=== PATIENT | male | born 1945 | race Caucasian/White ===

== ENCOUNTER 2018-10-07 07:39 | Observation (INO) | payer MEDICARE, MEDICAID ==
[2018-10-07] MEDS: Sodium Chloride 0.9% 1,000 ML IV SCH ×4 (08:40→22:12)
[2018-10-07] MEDS ORDERED: Sodium Chloride 0.9% 1,000 ML ONE (08:43)
--- NOTE | 2018-10-07 08:54 | CT ---
Date of service: 10/07/2018 PROCEDURE: CT HEAD WITHOUT CONTRAST HISTORY: Code Stroke COMPARISON: CT head 08/29/2013 TECHNIQUE: Axial computed tomography images were obtained through the head/brain without intravenous contrast. Coronal and sagittal reconstructions are also aquired. Radiation dose: Total exam DLP = 1086.36 mGy-cm. FINDINGS: HEMORRHAGE: No intracranial hemorrhage seen. BRAIN: No intraparenchymal mass identified. There is ventricular and sulcal prominence, consistent with age related volume loss. There are areas of periventricular white matter hypodensity, consistent with chronic small vessel ischemic changes. Bilateral basal ganglia calcifications noted. Acro cranial VENTRICLES: See above CALVARIUM: Intact PARANASAL SINUSES: Visualized paranasal sinuses are clear. MASTOID AIR CELLS: Minimal fluid noted in the visualized left mastoid air cells. Visualized right mastoid air cells are clear. OTHER FINDINGS: None. IMPRESSION: No mass, hemorrhage, or acute infarct identified. Age-related changes as above. Findings discussed with Dr. Mitchell of the emergency department at 8:48 am on 10/07/2018.
--- NOTE | 2018-10-07 08:55 | C.PDOC ---
History Of Present Illness 73 year old male with no pertinent medical problems presents to the ED complaining of headache, nausea, vomiting, and dizziness for one day. Reports he was feeling fine yesterday and working in the yard until 15:00 when he started feeling dizzy. Reports he went to rest and then to sleep and he still felt dizzy when he woke up this morning. Reports headache is dull, frontal, and rates it 5/10. He feels like the world is spinning and is associated with 2 episodes of vomiting. Time Seen by Provider: 10/07/18 07:58 Chief Complaint (Nursing): Dizziness/Lightheaded History Per: Patient History/Exam Limitations: no limitations Onset/Duration Of Symptoms: Days Current Symptoms Are (Timing): Still Present Fall Associated With With Symptoms: No Past Medical History Reviewed: Historical Data, Nursing Documentation, Vital Signs Vital Signs: Last Vital Signs Temp 97.5 F L 10/07/18 07:45 Pulse 44 L 10/07/18 08:51 Resp 12 10/07/18 08:51 BP 135/67 10/07/18 08:51 Pulse Ox 100 10/07/18 08:51 Primary Care Provider: Natalia Navarro - Medical History PMH: Hypercholesterolemia Surgical History: No Surg Hx Family History: States: No Known Family Hx - Social History Hx Tobacco Use: No Hx Alcohol Use: No Hx Substance Use: No - Immunization History Hx Tetanus Toxoid Vaccination: No Hx Influenza Vaccination: Yes Hx Pneumococcal Vaccination: No Review Of Systems Except As Marked, All Systems Reviewed And Found Negative. Constitutional: Negative for: Fever, Chills Cardiovascular: Negative for: Chest Pain Respiratory: Negative for: Shortness of Breath Gastrointestinal: Positive for: Nausea, Vomiting Neurological: Positive for: Headache, Dizziness Physical Exam - Physical Exam Appears: Non-toxic, No Acute Distress, Other (calm, cooperative, answering questions, cachectic, frail, elderly ) Skin: Warm, Dry, No Rash Head: Normacephalic Eye(s): bilateral: Normal Inspection Oral Mucosa: Moist Neck: Supple Chest: Symmetrical Cardiovascular: Rhythm Regular, Other (Bradycardic ) Respiratory: Normal Breath Sounds, No Rales, No Rhonchi, No Wheezing Gastrointestinal/Abdominal: Soft, No Tenderness, Other (scaphoid) Pulses: Left Dorsalis Pedis: Normal, Right Dorsalis Pedis: Normal Neurological/Psych: Oriented x3, Normal Speech Gait: Steady ED Course And Treatment - Laboratory Results Result Diagrams: 10/07/18 09:01 10/07/18 09:01 O2 Sat by Pulse Oximetry: 100 (RA) Pulse Ox Interpretation: Normal - CT Scan/US CT Head Other Rad Studies (CT/US): Read By Radiologist, Radiology Report Reviewed CT/US Interpretation: Accession No. : [id number]. Patient Name / ID : JOEY CHOUDHURY R / [id number]. Exam Date : 10/07/2018 08:25:49 ( Approved ). Study Comment : Sex / Age : M / 73Y. Creator : Abran Navarro MD. Dictator : Abran Navarro MD. Chemical Processing Supervisor : Senior Court Office Assistant : Abran Navarro MD. Approver2 : Report Date : 10/07/2018 08:50:22. My Comment : . Date of service: 10/07/2018. PROCEDURE: CT HEAD WITHOUT CONTRAST. HISTORY: Code Stroke. COMPARISON: CT head 08/29/2013. TECHNIQUE: Axial computed tomography images were obtained through the head/brain without intravenous contrast. Coronal and sagittal reconstructions are also aquired. Radiation dose: Total exam DLP = 1086.36 mGy-cm. FINDINGS: HEMORRHAGE: No intracranial hemorrhage seen. BRAIN: No intraparenchymal mass identified. There is ventricular and sulcal prominence, consistent with age related volume loss. There are areas of periventricular white matter hypodensity, consistent with chronic small vessel ischemic changes. Bilateral basal ganglia calcificat ions noted. Acro cranial. VENTRICLES: See above. CALVARIUM: Intact. PARANASAL SINUSES: Visualized paranasal sinuses are clear. MASTOID AIR CELLS: Minimal fluid noted in the visualized left mastoid air cells. Visualized right mastoid air cells are clear. OTHER FINDINGS: None. IMPRESSION: No mass, hemorrhage, or acute infarct identified. Age-related changes as above. Findings discussed with Dr. Mitchell of the emergency department at 8:48 am on 10/07/2018. Medical Decision Making Medical Decision Making: Differentials: Stroke vs Vertigo Plan - EKG - CXR - IV fluids - CT head - Bloodwork - Code Stroke CT head is unremarkable. On reevaluation, patient reports he still has headache but dizziness is subsiding. Disposition Discussed With Dr.: Natalia Navarro - Disposition Disposition: HOSPITALIZED Disposition Time: 10:21 Condition: GUARDED - POA Present On Arrival: None - Clinical Impression Clinical Impression: Dizziness, Near syncope, Vomiting, Headache - Scribe Statement The provider has reviewed the documentation as recorded by the Scribe Irena Hernandez All medical record entries made by the Scribe were at my direction and personally dictated by me. I have reviewed the chart and agree that the record accurately reflects my personal performance of the history, physical exam, medical decision making, and the department course for this patient. I have also personally directed, reviewed, and agree with the discharge instructions and disposition. Decision To Admit - Pt Status Changed To: Hospital Disposition Of: Observation - . Bed Request Type: Telemetry Admitting Physician: Natalia Navarro Patient Diagnosis: Vomiting, Headache, Near syncope
[2018-10-07 09:11] LABS: BASO % 0.4 % (0.0-2.0); EOS # 0.8 K/uL (0.0-0.7); EOS % 10.7 % (0.0-4.0); LYMPH # 2.8 K/uL (1.0-4.3); LYMPH % 36.9 % (20.0-40.0); MEAN CELL VOLUME 82.4 fL (80.0-94.0); MEAN CORPUSCULAR HEMOGLOBIN 27.6 pg (27.0-31.0); MEAN CORPUSCULAR HGB CONC 33.5 g/dL (33.0-37.0); MONO # 0.5 K/uL (0.0-0.8); MONO % 6.7 % (0.0-10.0); NEUT # 3.4 K/uL (1.8-7.0); NEUT % 45.3 % (50.0-75.0); NRBC % 0.1 % (0.0-2.0); RBC 4.71 Mil/uL (4.40-5.90); RED CELL DISTRIBUTION WIDTH 13.8 % (11.5-14.5); WHITE BLOOD COUNT 7.5 K/uL (4.8-10.8)
[2018-10-07 09:18] LABS: PARTIAL THROMBOPLASTIN TIME 29.2 SECONDS (21-34); PROTHROMBIN TIME 10.8 SECONDS (9.7-12.2)
[2018-10-07 09:27] LABS: ALB/GLOB RATIO 1.3 (1.0-2.1); ALBUMIN 4.2 g/dL (3.5-5.0); ALT/SGPT 35 U/L (21-72); AST/SGOT 31 U/L (17-59); BLOOD UREA NITROGEN 13 mg/dL (9-20); CALCIUM 9.2 mg/dl (8.6-10.4); GFR NON-AFRICAN AMERICAN > 60; HDL CHOLESTEROL 58 mg/dL (30-70)
[2018-10-07 09:38] LABS: LDL CHOLESTEROL 133 mg/dL (0-129)
--- NOTE | 2018-10-07 11:09 | RAD ---
Date of service: 10/07/2018 HISTORY: Code Stroke COMPARISON: Comparison made with prior chest radiograph dated 08/28/2013 TECHNIQUE: 1 view obtained. FINDINGS: LUNGS: No acute consolidation. There are 1 or 2 tiny nodular densities seen in the right upper lobe and punctate nodular density left upper lobe. Findings may represent small granulomata. PLEURA: No significant pleural effusion identified, no pneumothorax apparent. CARDIOVASCULAR: Aortic atherosclerotic calcification present. Normal cardiac size. No pulmonary vascular congestion. OSSEOUS STRUCTURES: No significant abnormalities. VISUALIZED UPPER ABDOMEN: Normal. OTHER FINDINGS: None. IMPRESSION: No acute consolidation. There are 1 or 2 tiny nodular densities seen in the right upper lobe and punctate nodular density left upper lobe. Findings may represent small granulomata.
--- NOTE | 2018-10-07 15:33 | CP.PCM.HP ---
Past Patient History - Infectious Disease Hx of Infectious Diseases: None - Past Social History Smoking Status: Light Smoker < 10 Cigarettes Daily - CARDIAC Hx Hypercholesterolemia: Yes - NEUROLOGICAL Hx Neurological Disorder: Yes - MUSCULOSKELETAL/RHEUMATOLOGICAL Hx Falls: Yes - PSYCHIATRIC Hx Substance Use: No - ANESTHESIA Hx Anesthesia: No Hx Anesthesia Reactions: No Hx Malignant Hyperthermia: No Meds Allergies/Adverse Reactions: Allergies Allergy/AdvReac Type Severity Reaction Status Date / Time No Known Allergies Allergy Verified 10/07/18 07:48 Physical Exam - Constitutional Appears: Well - Head Exam Head Exam: ATRAUMATIC, NORMAL INSPECTION, NORMOCEPHALIC - Eye Exam Eye Exam: EOMI, Normal appearance, PERRL Pupil Exam: NORMAL ACCOMODATION, PERRL - ENT Exam ENT Exam: Mucous Membranes Moist, Normal Exam - Neck Exam Neck exam: Positive for: Normal Inspection - Respiratory Exam Respiratory Exam: Decreased Breath Sounds - Cardiovascular Exam Cardiovascular Exam: REGULAR RHYTHM, +S1, +S2 - GI/Abdominal Exam GI & Abdominal Exam: Diminished Bowel Sounds, Soft - Rectal Exam Rectal Exam: Deferred - Neurological Exam Neurological exam: Oriented x3 Results - Vital Signs Recent Vital Signs: Last Vital Signs Temp 97.4 F L 10/07/18 11:42 Pulse 48 L 10/07/18 12:24 Resp 20 10/07/18 11:42 BP 146/63 10/07/18 11:42 Pulse Ox 98 10/07/18 11:42 - Labs Result Diagrams: 10/07/18 09:01 10/07/18 09:01 Labs: Laboratory Results - last 24 hr 10/07/18 10/07/18 10/07/18 08:13 09:01 09:01 WBC 7.5 RBC 4.71 Hgb 13.0 Hct 38.8 MCV 82.4 MCH 27.6 MCHC 33.5 RDW 13.8 Plt Count 170 MPV 10.0 Neut % (Auto) 45.3 L Lymph % (Auto) 36.9 [place] % (Auto) 6.7 Eos % (Auto) 10.7 H Baso % (Auto) 0.4 Neut # (Auto) 3.4 Lymph # (Auto) 2.8 [place] # (Auto) 0.5 Eos # (Auto) 0.8 H Baso # (Auto) 0.0 PT 10.8 INR 1.0 APTT 29.2 Sodium Potassium Chloride Carbon Dioxide Anion Gap BUN Creatinine Est GFR ( Amer) Est GFR (Non-Af Amer) POC Glucose (mg/dL) 131 H Random Glucose Hemoglobin A1c Calcium Total Bilirubin AST ALT Alkaline Phosphatase Troponin I Total Protein Albumin Globulin Albumin/Globulin Ratio Triglycerides Cholesterol LDL Cholesterol Direct HDL Cholesterol Blood Type Antibody Screen 10/07/18 10/07/18 10/07/18 09:01 09:01 09:01 WBC RBC Hgb Hct MCV MCH MCHC RDW Plt Count MPV Neut % (Auto) Lymph % (Auto) [place] % (Auto) Eos % (Auto) Baso % (Auto) Neut # (Auto) Lymph # (Auto) [place] # (Auto) Eos # (Auto) Baso # (Auto) PT INR APTT Sodium 138 Potassium 4.1 Chloride 104 Carbon Dioxide 25 Anion Gap 13 BUN 13 Creatinine 0.9 Est GFR ( Amer) > 60 Est GFR (Non-Af Amer) > 60 POC Glucose (mg/dL) Random Glucose 122 H D Hemoglobin A1c 6.1 Calcium 9.2 Total Bilirubin 0.6 AST 31 ALT 35 Alkaline Phosphatase 114 Troponin I < 0.0120 Total Protein 7.5 Albumin 4.2 Globulin 3.3 Albumin/Globulin Ratio 1.3 Triglycerides 88 Cholesterol 220 H LDL Cholesterol Direct 133 H HDL Cholesterol 58 Blood Type A NEGATIVE Antibody Screen Negative
[2018-10-08 01:15] VITALS: RESP 18
[2018-10-08] MEDS: Sodium Chloride 0.9% 1,000 ML IV SCH ×3 (04:48→14:30)
[2018-10-08 08:23] VITALS: TEMP 97.5; O2SAT 99
[2018-10-08 09:57] LABS: URINE BACTERIA RARE (<OCC); URINE BILIRUBIN NEGATIVE (NEGATIVE); URINE BLOOD NEGATIVE (NEGATIVE); URINE CLARITY Clear (Clear); URINE COLOR Straw (YELLOW); URINE GLUCOSE (UA) NORMAL (Normal); URINE LEUKOCYTE ESTERASE NEG Leu/uL (Negative); URINE PROTEIN NEGATIVE (NEGATIVE); URINE UROBILINOGEN NORMAL mg/dL (0.2-1.0)
[2018-10-08] MEDS ORDERED: Enoxaparin 40 mg Syringe SC SCH (10:00)
[2018-10-08 11:14] LABS: BASO % 0.4 % (0.0-2.0); EOS # 1.2 K/uL (0.0-0.7); EOS % 16.8 % (0.0-4.0); HEMOGLOBIN 12.7 g/dL (12.0-18.0); LYMPH # 2.4 K/uL (1.0-4.3); LYMPH % 33.1 % (20.0-40.0); MEAN CORPUSCULAR HEMOGLOBIN 27.6 pg (27.0-31.0); MEAN CORPUSCULAR HGB CONC 32.7 g/dL (33.0-37.0); MEAN PLATELET VOLUME 9.8 fL (7.2-11.7); MONO # 0.5 K/uL (0.0-0.8); MONO % 6.8 % (0.0-10.0); NEUT # 3.2 K/uL (1.8-7.0); NEUT % 42.9 % (50.0-75.0); NRBC % 0.1 % (0.0-2.0); RBC 4.59 Mil/uL (4.40-5.90); RED CELL DISTRIBUTION WIDTH 13.8 % (11.5-14.5); WHITE BLOOD COUNT 7.4 K/uL (4.8-10.8)
[2018-10-08 11:17] LABS: MEAN CELL VOLUME 84.4 fL (80.0-94.0)
[2018-10-08 11:28] LABS: ALB/GLOB RATIO 1.3 (1.0-2.1); ALBUMIN 3.6 g/dL (3.5-5.0); ALT/SGPT 30 U/L (21-72); AST/SGOT 26 U/L (17-59); BLOOD UREA NITROGEN 10 mg/dL (9-20); CALCIUM 8.9 mg/dl (8.6-10.4); GFR NON-AFRICAN AMERICAN > 60
[2018-10-08 12:34] VITALS: BP 149/60; PULSE 60
--- NOTE | 2018-10-08 14:50 | CP.PCM.PN ---
Subjective - Date & Time of Evaluation Date of Evaluation: 10/08/18 Time of Evaluation: 14:50 - Subjective Subjective: PATIENT SEEN AND EXAMINED AT THE BEDSIDE Objective - Vital Signs/Intake and Output Vital Signs (last 24 hours): Temp Pulse Resp BP Pulse Ox 97.5 F L 60 18 149/60 99 10/08/18 08:21 10/08/18 12:17 10/08/18 08:21 10/08/18 12:17 10/08/18 12:17 Intake and Output: 10/08/18 10/08/18 06:59 18:59 Output Total 1150 Balance -1150 - Medications Medications: Current Medications Aspirin (Aspirin Chewable) 81 mg PO DAILY [facility] Last Admin: 10/08/18 09:22 Dose: 81 mg Enoxaparin Sodium (Lovenox) 40 mg SC DAILY [facility] Last Admin: 10/08/18 09:22 Dose: 40 mg Sodium Chloride (Sodium Chloride 0.9%) 1,000 mls @ 100 mls/hr IV .Q10H GEOFF Last Admin: 10/08/18 06:46 Dose: 100 mls/hr Meclizine HCl (Antivert) 25 mg PO TID PRN PRN Reason: Dizziness Rosuvastatin Calcium (Crestor) 10 mg PO HS [facility] Last Admin: 10/07/18 22:11 Dose: 10 mg - Labs Labs: 10/08/18 11:03 10/08/18 11:03 PT 10.8 SECONDS (9.7-12.2) 10/07/18 09:01 INR 1.0 10/07/18 09:01 APTT 29.2 SECONDS (21-34) 10/07/18 09:01 Assessment and Plan - Assessment and Plan (Free Text) Assessment: FOLLOW UP WITH DR Julia COOK IN HIS OFFICE CONTINUE HOME MEDICATION NEW PRESCRIPTION GIVEN MECLIZINE 25 MG PO PRN Q8H FOR 15 DAYS ACTIVITY TOLERATED CALL DR Julia COOK OR GO TO THE EMERGENCY ROOM IF SYMPTOM RETURN OR WORSENING
--- NOTE | 2018-10-08 19:31 | CARD ---
APPROVED REPORT Date of service: 10/07/2018 EKG Measurement Heart [id number] [id number] <Conclusion> Sinus bradycardia Otherwise normal ECG
--- NOTE | 2018-10-08 20:00 | CARD ---
APPROVED REPORT Date of service: 10/08/2018 EXAM: Two-dimensional and M-mode echocardiogram with Doppler and color Doppler. INDICATION Dizziness and Vertigo BRADYCARDIA, VTACH RISK FACTORS Smoking 2D DIMENSIONS IVSd0.7 (0.7-1.1cm)LVDd4.4 (3.9-5.9cm) PWd0.7 (0.7-1.1cm)LA Gfaqbd46 (18-58mL) LVDs2.7 (2.5-4.0cm)FS (%) 37.6 % LVEF (%)67.8 (>50%)LVEF (Trevino's)66.58 % M-Mode DIMENSIONS Left Atrium (MM)3.02 (2.5-4.0cm)IVSd0.78 (0.7-1.1cm) Aortic Root3.82 (2.2-3.7cm)LVDd4.46 (4.0-5.6cm) Aortic Cusp Exc.2.34 (1.5-2.0cm)PWd0.70 (0.7-1.1cm) FS (%) 31 %LVDs3.06 (2.0-3.8cm) LVEF (%)59 (>50%) Mitral Valve MV E Uactmbmv35.4cm/sMV A Svncymzv72.2cm/sE/A ratio1.3 TDI Lateral E' Peak V12.54cm/sMedial E' Peak V9.90cm/sE/Lateral E'6.4 E/Medial E'8.1 Tricuspid Valve TR Peak Fofhwruy302xl/sTR Peak Gr.51mgVrIVUO70mjYl <Conclusion> normal size la,lv & ra rv. normal lv wall otion,thickness,systolic & diastolic function with lvef of 65-70% .normal aortic,mitral,tv & pv. mild tr,trace pi & mr. normal size aortic root & ivc. no pericardial effusion. nomral pulmonary systolic pressures of 30 mm of hg.
--- NOTE | 2018-10-09 01:30 | CP.PCM.DIS ---
Provider - Provider Date of Admission: 10/07/18 08:55 Attending physician: Michelle Cook MD Consults: 10/07/18 16:08 Cardiology Consult Routine Comment: SINUS YARI AND DIZZINESS Consulting Provider: Ankush Scott Consulting Physician: Ankush Scott Reason for Consult: SINUS YARI AND DIZZINESS Time Spent in preparation of Discharge (in minutes): 30 Hospital Course - Lab Results Lab Results: Most Recent Lab Values WBC 7.4 K/uL (4.8-10.8) 10/08/18 11:03 RBC 4.59 Mil/uL (4.40-5.90) 10/08/18 11:03 Hgb 12.7 g/dL (12.0-18.0) 10/08/18 11:03 Hct 38.7 % (35.0-51.0) 10/08/18 11:03 MCV 84.4 fL (80.0-94.0) D 10/08/18 11:03 MCH 27.6 pg (27.0-31.0) 10/08/18 11:03 MCHC 32.7 g/dL (33.0-37.0) L 10/08/18 11:03 RDW 13.8 % (11.5-14.5) 10/08/18 11:03 Plt Count 166 K/uL (130-400) 10/08/18 11:03 MPV 9.8 fL (7.2-11.7) 10/08/18 11:03 Neut % (Auto) 42.9 % (50.0-75.0) L 10/08/18 11:03 Lymph % (Auto) 33.1 % (20.0-40.0) 10/08/18 11:03 [place] % (Auto) 6.8 % (0.0-10.0) 10/08/18 11:03 Eos % (Auto) 16.8 % (0.0-4.0) H 10/08/18 11:03 Baso % (Auto) 0.4 % (0.0-2.0) 10/08/18 11:03 Neut # (Auto) 3.2 K/uL (1.8-7.0) 10/08/18 11:03 Lymph # (Auto) 2.4 K/uL (1.0-4.3) 10/08/18 11:03 [place] # (Auto) 0.5 K/uL (0.0-0.8) 10/08/18 11:03 Eos # (Auto) 1.2 K/uL (0.0-0.7) H 10/08/18 11:03 Baso # (Auto) 0.0 K/uL (0.0-0.2) 10/08/18 11:03 PT 10.8 SECONDS (9.7-12.2) 10/07/18 09:01 INR 1.0 10/07/18 09:01 APTT 29.2 SECONDS (21-34) 10/07/18 09:01 Sodium 138 mmol/L (132-148) 10/08/18 11:03 Potassium 4.0 mmol/L (3.6-5.2) 10/08/18 11:03 Chloride 108 mmol/L (98-107) H 10/08/18 11:03 Carbon Dioxide 25 mmol/L (22-30) 10/08/18 11:03 Anion Gap 9 (10-20) L 10/08/18 11:03 BUN 10 mg/dL (9-20) 10/08/18 11:03 Creatinine 0.9 mg/dL (0.8-1.5) 10/08/18 11:03 Est GFR ( Amer) > 60 10/08/18 11:03 Est GFR (Non-Af Amer) > 60 10/08/18 11:03 POC Glucose (mg/dL) 102 mg/dL (65-110) 10/08/18 12:10 Random Glucose 85 mg/dL (75-110) D 10/08/18 11:03 Hemoglobin A1c 6.1 % (4.2-6.5) 10/07/18 09:01 Calcium 8.9 mg/dl (8.6-10.4) 10/08/18 11:03 Magnesium 2.1 mg/dL (1.6-2.3) 10/07/18 19:09 Total Bilirubin 0.4 mg/dL (0.2-1.3) 10/08/18 11:03 AST 26 U/L (17-59) 10/08/18 11:03 ALT 30 U/L (21-72) 10/08/18 11:03 Alkaline Phosphatase 88 U/L (38-126) 10/08/18 11:03 Troponin I < 0.0120 ng/mL (0.00-0.120) 10/07/18 09:01 Total Protein 6.4 g/dL (6.3-8.3) 10/08/18 11:03 Albumin 3.6 g/dL (3.5-5.0) 10/08/18 11:03 Globulin 2.7 gm/dL (2.2-3.9) 10/08/18 11:03 Albumin/Globulin Ratio 1.3 (1.0-2.1) 10/08/18 11:03 Triglycerides 88 mg/dL (0-149) 10/07/18 09:01 Cholesterol 220 mg/dL (0-199) H 10/07/18 09:01 LDL Cholesterol Direct 133 mg/dL (0-129) H 10/07/18 09:01 HDL Cholesterol 58 mg/dL (30-70) 10/07/18 09:01 Urine Color Straw (YELLOW) 10/08/18 09:45 Urine Clarity Clear (Clear) 10/08/18 09:45 Urine pH 5.0 (5.0-8.0) 10/08/18 09:45 Ur Specific [place] 1.006 (1.003-1.030) 10/08/18 09:45 Urine Protein Negative mg/dL (NEGATIVE) 10/08/18 09:45 Urine Glucose (UA) Normal mg/dL (Normal) 10/08/18 09:45 Urine Ketones Negative mg/dL (NEGATIVE) 10/08/18 09:45 Urine Blood Negative (NEGATIVE) 10/08/18 09:45 Urine Nitrate Negative (NEGATIVE) 10/08/18 09:45 Urine Bilirubin Negative (NEGATIVE) 10/08/18 09:45 Urine Urobilinogen Normal mg/dL (0.2-1.0) 10/08/18 09:45 Ur Leukocyte Esterase Neg [place]/uL (Negative) 10/08/18 09:45 Urine WBC (Auto) < 1 /hpf (0-5) 10/08/18 09:45 Urine RBC (Auto) < 1 /hpf (0-3) 10/08/18 09:45 Urine Bacteria Rare (<OCC) 10/08/18 09:45 Blood Type A NEGATIVE 10/07/18 09:01 Antibody Screen Negative 10/07/18 09:01 Discharge Exam - Head Exam Head Exam: ATRAUMATIC, NORMAL INSPECTION, NORMOCEPHALIC Discharge Plan - Discharge Medications Prescriptions: Meclizine [Meclizine*] 25 mg PO TID PRN 15 Days tab PRN Reason: Dizziness - Follow Up Plan Condition: GUARDED Disposition: HOME/ ROUTINE Instructions: Vertigo (a Type of Dizziness) (DC), Meclizine, Near Fainting (DC) Additional Instructions: FOLLOW UP WITH DR Julia COOK IN HIS OFFICE CONTINUE HOME MEDICATION NEW PRESCRIPTION GIVEN MECLIZINE 25 MG PO PRN Q8H FOR 15 DAYS ACTIVITY TOLERATED CALL DR Julia COOK OR GO TO THE EMERGENCY ROOM IF SYMPTOM RETURN OR WORSENING Referrals: Ankush Scott MD [Staff Provider] - Natalia Cook MD [Staff Provider] -
== END 2018-10-08 15:49 | disposition home or self-care (01) ==
LOC: C.ER 07:39 → C.9E 08:55 → C.5S 09:21
PROVIDERS: ADMIT Internal Medicine Nephrology; ATTEND Internal Medicine Nephrology
DX: R55 Syncope and collapse (principal); R51 Headache; R42 Dizziness and giddiness; R11.2 Nausea with vomiting, unspecified; E78.00 Pure hypercholesterolemia, unspecified; F17.210 Nicotine dependence, cigarettes, uncomplicated
CPT/HCPCS: 36415; 70450; 71045; 80053; 80061; 81001; 82948; 83036; 83735; 84484; 85025; 85610; 85730; 86850; 86900; 93005; 93306; 97161; 97530; 99285; G0378; G8978; G8979; G8980; J1650; J7030